=== PATIENT | female | born 1990 | race Caucasian/White ===

== ENCOUNTER 2024-05-10 10:23 | Emergency (ER) | payer OTHER ==
[~2024-05-10] VITALS: Ht 167.6 cm; Wt 98.9 kg
[2024-05-10 10:36] VITALS: BP_SYST 133; PULSE 86; RESP 18; TEMP 98; O2SAT 97
[2024-05-10 11:02] LABS: BASOPHILS % (AUTO) 0.6 % (0.0-2.0); EOSINOPHILS # (AUTO) 0.1 K/uL (0.0-0.4); EOSINOPHILS % (AUTO) 1.5 % (0.0-4.0); HEMATOCRIT 38.6 % (36-48); HEMOGLOBIN 12.4 g/dL (12.0-16.0); LYMPHOCYTES # (AUTO) 2.5 K/uL (1.0-5.5); LYMPHOCYTES % (AUTO) 28.9 % (20.5-51.5); MEAN CORPUSCULAR HEMOGLOBIN 25 pg (27-31); MEAN CORPUSCULAR HGB CONC 32 % (32-36); MEAN CORPUSCULAR VOLUME 78 fL (79.0-98.0); MONOCYTES # (AUTO) 0.3 K/uL (0.0-1.0); MONOCYTES % (AUTO) 3.5 % (1.7-9.3); NEUTROPHILS # (AUTO) 5.7 K/uL (1.8-7.7); NEUTROPHILS % (AUTO) 65.5 % (40.0-70.0); PLATELET COUNT (AUTO) 390 K/uL (130-430); RED BLOOD CELL COUNT(AUTO) 4.96 MIL/uL (4.2-6.2); RED CELL DISTRIBUTION WIDTH 13.9 % (9.0-15.0); WHITE BLOOD COUNT (AUTO) 8.8 K/uL (4.8-10.8)
[2024-05-10 11:26] LABS: ALBUMIN 3.4 g/dL (3.4-4.8); CALCIUM 9.1 mg/dL (8.4-11.0); CREATININE 0.69 mg/dL (0.55-1.30); POTASSIUM 4.4 mmol/L (3.5-5.1); TOTAL BILIRUBIN 0.2 mg/dL (0.0-1.0); TOTAL PROTEIN, SERUM 7.5 g/dL (6.4-8.3)
[2024-05-10 11:32] LABS: SERUM HCG (QUALITATIVE) NEGATIVE (NEGATIVE)
[2024-05-10 11:33] LABS: BILIRUBIN,URINE NEGATIVE (NEGATIVE); BLOOD, URINE 1+ (NEGATIVE); CLARITY/URINE CLEAR (CLEAR); COLOR,URINE YELLOW (YELLOW); GLUCOSE,URINE NEGATIVE (NEGATIVE); KETONES,URINE NEGATIVE (NEGATIVE); LEUKOCYTE ESTERASE ,URINE TRACE (NEGATIVE); NITRITE, URINE NEGATIVE (NEGATIVE); PROTEIN URINE NEGATIVE (NEGATIVE); UROBILINOGEN,URINE 0.2 (0.2-1.0)
[2024-05-10 11:33] LABS: PROTHROMBIN TIME 10.4 SECS (9.5-12.5)
[2024-05-10 11:47] LABS: BACTERIA,URINE RARE /HPF (None Seen); RBC,URINE 0-3 /HPF (0-3); WBC,URINE 0-3 /HPF (0-3)
[2024-05-10 11:50] LABS: BILIRUBIN,DIRECT 0.1 mg/dL (0.0-0.3)
[2024-05-10] MEDS ORDERED: TRAM50TA2 PO (13:40)
[2024-05-10] MEDS ORDERED: IBUP-1969 PO (13:40)
[2024-05-10 13:49] VITALS: BP_SYST 133; PULSE 86; RESP 18; TEMP 98; O2SAT 97
== END 2024-05-10 13:47 | disposition home or self-care (01) ==
LOC: SED 10:23
DX: R10.31 Right lower quadrant pain (principal)
CPT/HCPCS: 36415; 80048; 80076; 81000; 81001; 81015; 81025; 82150; 83690; 84703; 85025; 85610; 85730; 99284